=== PATIENT | male | born 1950 | race Hispanic/Latino ===

== ENCOUNTER → 2019-10-10 | Outpatient (CLI) | payer OTHER ==
[~2019-10-10] MED LIST: AEC81 PO; ESOM40CA54 PO; FISH1CAP49 PO; FOLI-74 PO; HYDR12.530 PO; LEVO500T2 PO; REGADENOSON 0.4 MG/5 ML PF SYG IVP SCH; SIMV-46 PO; TRAM50TA4 PO
== END | disposition home or self-care (01) ==
LOC: SHCH 08:07
PROVIDERS: ATTEND Internal Medicine Cardiovascular Disease
DX: I20.9 Angina pectoris, unspecified (principal)
CPT/HCPCS: 78452; 93017; 96374; A9500 ×2; J2785